=== PATIENT | male | born 1950 | race Caucasian/White ===

== ENCOUNTER 2016-05-05 09:16 | Emergency (ER) | payer MEDICARE, MEDICAID ==
[2016-05-05] MEDS ORDERED: HYDROmorphone 1 MG INJECTION IM ONE (09:22)
[2016-05-05 09:44] VITALS: TEMP 97.7; BMI 18.6
--- NOTE | 2016-05-05 10:43 | EDPRACDOC ---
<Saran Maldonado - Last Filed: 05/05/16 11:11> - General Information Information Source: Intermediate, Improvement Rn Mode of Arrival: Ambulance - History of Present Illness Onset: [employer] HPI: PT PRESENTS TODAY WITH PEG TUBE DISLODGEMENT. NO COMPLAINTS. PT VERY FAMILIAR WITH ME. USUALLY TAKES A [employer]. Patient Has a Chronic/Temporary: Reports: Feeding Tube Line/Tube Is: Out Presents for Line/Tube: Replacement Associated Signs & Symptoms: Reports: None <Svetlana Whitaker - Last Filed: 05/05/16 11:25> - General Information Chief Complaint: Gastrostomy Tube Replacement Stated Complaint: G TUBE ISSUE Time Seen by Provider: 05/05/16 09:22 Home Medications: Home Medications Allopurinol [Zyloprim] 200 mg TUBE DAILY 02/17/16 Baclofen 5 mg TUBE BID 02/17/16 Fenofibrate 54 mg TUBE DAILY 02/17/16 Hydrocodone/Acetamin Liquid [Lortab Elixir] 15 ml PO QHS PRN 02/17/16 Omeprazole Suspension 20 mg TUBE BID 02/17/16 Lorazepam 0.5 mg TUBE QID PRN 02/27/16 Hydrochlorothiazide 25 mg TUBE DAILY 04/17/16 Lactose-Reduced Food/Fiber [Jevity 1.2 Kelechi Liquid] 237 ml TUBE Q4H 04/17/16 Menthol/Camphor [Men-Phor Anti-Itch Lotion] 1 beth TOP DAILY 04/17/16 Polyethylene Glycol 3350 [Miralax] 17 gm TUBE DAILY PRN 04/17/16 Potassium Chloride [K-Donita] 30 ml TUBE DAILY 04/17/16 Promethazine HCl [Phenadoz] 25 mg RC Q6H PRN 04/17/16 Promethazine HCl [Phenergan] 25 mg IM Q6H PRN 04/17/16 Sennosides/Docusate Sodium [Senna Plus Tablet] 2 tab TUBE BID 04/17/16 Allergies/Adverse Reactions: Allergies Allergy/AdvReac Type Severity Reaction Status Date / Time NSAIDS (Non-Steroidal Allergy Unknown Unknown/See Verified 05/05/16 09:26 Anti-Inflamma Comments [Nsaids] - Treatment Prior to ED Arrival Reported Medications/Treatment [employer] EMS Treatment BLS IV No <Saran Maldonado - Last Filed: 05/05/16 11:11> - Treatment Prior to ED Arrival Reported Medications/Treatment [employer] EMS Treatment BLS IV No <Svetlana Whitaker - Last Filed: 05/05/16 11:25> ED Past Medical History - History Reviewed Yes Nurses notes reviewed and agree except as marked - Patient Medical History Neurological History: Reports: Cerebrovascular Accident, Dementia Cardiac History: Reports: Hypertension, Hypercholesterolemia Psychological History: Denies: Depression Systemic History: Reports: Diabetes Surgical History: Reports: Other (G-TUBE) - Social Medical History Smoking Status: Never smoker <Svetlana Whitaker - Last Filed: 05/05/16 11:25> EDM Review of Systems - Review of Systems ROS Negative Except as Marked: Yes All systems reviewed and were negative except as marked ROS Unobtainable: Yes Review of systems cannot be obtained due to the patient's medical condition <Svetlana Whitaker - Last Filed: 05/05/16 11:25> - Physical Exam Last recorded Vital Signs: Last Vital Signs Temp 97.7 F 05/05/16 09:20 Pulse 62 05/05/16 10:40 Resp 16 05/05/16 10:40 BP 147/67 05/05/16 10:40 Pulse Ox 95 05/05/16 10:40 Oxygen Pulse Oxygen Saturation 95 O2 Device Room Air Oxygen Flow Rate Fraction of Inspired Oxygen ( FIO2) <Saran Maldonado - Last Filed: 05/05/16 11:11> - Physical Exam Constitutional: Alert (Awake), No apparent distress Oriented to: Unable to Test Last recorded Vital Signs: Last Vital Signs Temp 97.7 F 05/05/16 09:20 Pulse 62 05/05/16 10:40 Resp 16 05/05/16 10:40 BP 147/67 05/05/16 10:40 Pulse Ox 95 05/05/16 10:40 Oxygen Pulse Oxygen Saturation 95 O2 Device Room Air Oxygen Flow Rate Fraction of Inspired Oxygen ( FIO2) - HEENT Head: Normal Eye Exam: Normal Neck: Normal, Denies Pain, Midline - Respiratory/Cardiovascular Respiratory: Normal - CTA Cardiovascular: Normal - GI Auscultation: Normal Palpation: Normal Tenderness: Non tender, Other (NOTED PEG TUB SITE; NO TUBE) - Musculoskeletal Back: Normal Extremities: Normal - Integumentary Skin: Normal Lymphatics: Normal - Neurologic Cerebellar: Unable to Test Mood Description: Appropriate <Svetlana Whitaker - Last Filed: 05/05/16 11:25> ED Procedures - Feeding Tube Informed of risks, benefits and alternatives described: Yes Informed Consent Signed: Verbal Indications: Out Placement confirmed by: Xray Feeding Tube Notes: THERE WERE NO [employer] PEG TUBES AVAILABLE. WE USED A [address] [employer] GAFFNEY CATH FOR PLACEMENT. <Svetlana Whitaker - Last Filed: 05/05/16 11:25> - Departure Yes I personally saw and evaluated the patient. <Saran Maldonado - Last Filed: 05/05/16 11:11> Decision Time to Discharge: 10:43 - Departure Disposition: Home Education/Counseling Given To: [employer] Member Education/Counseling Given Regarding: Diagnosis, Treatment, Follow Up <Svetlana Whitaker - Last Filed: 05/05/16 11:25> - Departure Condition: Good Final Diagnosis: PEG tube malfunction, PEG TUBE REPLACED BY LARRY PAC Instructions: How to Use and Care for Your PEG Tube (ED) Referrals: None,No Provider [Primary Care Provider] - One Week Additional Instructions: THIS IS ONLY A TEMPORARY FIX. THIS IS A GAFFNEY CATH AND PT WILL NEED A PROPER PEG TUBE VALENTINO.
--- NOTE | 2016-05-05 11:09 | DIRPT ---
CLINICAL DATA: Feeding tube placement. EXAM: ABDOMEN - 1 VIEW COMPARISON: Single view of the abdomen 04/23/2016 and 02/17/2016. FINDINGS: 60 cc of Gastrografin was injected into the patient's gastrostomy tube. The stomach opacifies with contrast. Nondilated proximal small bowel loops are also filled with contrast. The examination is otherwise unremarkable. IMPRESSION: Injected contrast opacifies the stomach. Electronically Signed By: Omar Aguilar M.D. On: 05/05/2016 11:07
[2016-05-05 11:38] VITALS: BP 133/62; PULSE 89
== END 2016-05-05 11:40 ==
LOC: ED 09:16
DX: K94.23 Gastrostomy malfunction (principal); Y83.8 Other surgical procedures as the cause of abnormal reaction of the patient, or of later complication, without mention of misadventure at the time of the procedure; F03.90 Unspecified dementia, unspecified severity, without behavioral disturbance, psychotic disturbance, mood disturbance, and anxiety; I10 Essential (primary) hypertension; E78.00 Pure hypercholesterolemia, unspecified; E11.9 Type 2 diabetes mellitus without complications; Z86.73 Personal history of transient ischemic attack (TIA), and cerebral infarction without residual deficits; Z79.899 Other long term (current) drug therapy
CPT/HCPCS: 43760; 74000; 96372; 99284; J1170